=== PATIENT | female | born 1990 | race African-American/Black ===

== ENCOUNTER 2016-10-13 02:13 | Emergency (ER) | payer MEDICAID, OTHER ==
[~2016-10-13] VITALS: Ht 175.3 cm; Wt 75.4 kg
[2016-10-13 03:46] VITALS: BP 108/61
[2016-10-13 04:36] LABS: CHLORIDE 104 mEq/L (98-107)
[2016-10-13 04:38] LABS: BASOPHILS % 0.2 % (0.0-2.0); EOSINOPHILS % 0.6 % (0.0-5.0); HEMATOCRIT. 29.9 % (36.0-48.0); HEMOGLOBIN. 9.7 g/dL (12.0-16.0); LYMPHOCYTES % 32.8 % (20.0-50.0); MEAN CORPUSCULAR HEMOGLOBIN 24.3 pg (28.0-32.0); MEAN CORPUSCULAR VOLUME 75.3 fL (81.0-99.0); MONOCYTES % 6.8 % (2.0-8.0); NEUTROPHILS % 59.6 % (40.0-76.0); PLATELET 174 x1000/uL (130-400); RED BLOOD CELL COUNT 3.98 mill/uL (4.2-5.4); RED CELL DISTRIBUTION WIDTH 17.9 % (11.6-14.6)
[2016-10-13 04:52] LABS: CARBON DIOXIDE 25 mEq/L (21-32)
[2016-10-13 04:58] LABS: B-HCG QUANTITATIVE 13387 mIU/mL (<3)
[2016-10-13 06:09] LABS: CLARITY URINE CLEAR (CLEAR); COLOR URINE YELLOW (YELLOW); GLUCOSE URINE NEGATIVE (NEGATIVE); KETONES URINE 3+ (NEGATIVE); LEUKOCYTE ESTERASE URINE NEGATIVE (NEGATIVE); NITRITE URINE NEGATIVE (NEGATIVE); OCCULT BLOOD URINE NEGATIVE (NEGATIVE); PROTEIN URINE NEGATIVE (NEGATIVE)
== END 2016-10-13 07:32 | disposition home or self-care (01) ==
LOC: ER 02:14
DX: O34.81 Maternal care for other abnormalities of pelvic organs, first trimester (principal); N83.202 Unspecified ovarian cyst, left side; O20.9 Hemorrhage in early pregnancy, unspecified; Z3A.01 Less than 8 weeks gestation of pregnancy; Z98.890 Other specified postprocedural states
CPT/HCPCS: 36415; 76801; 80048; 81003; 84702; 85025; 86850; 86900; 99285

== ENCOUNTER 2019-02-09 12:32 | Emergency (ER) | payer MEDICAID, OTHER ==
[~2019-02-09] VITALS: Ht 175.3 cm; Wt 81.0 kg
[2019-02-09] MEDS ORDERED: IBUPROFEN 600MG TABLET PO STA (14:40)
[2019-02-09 16:15] VITALS: BP 122/80
== END 2019-02-09 16:16 | disposition home or self-care (01) ==
LOC: ER 12:32
DX: M25.562 Pain in left knee (principal); Z98.890 Other specified postprocedural states
CPT/HCPCS: 73562; 99283